=== PATIENT | female | born 1945 | race Hispanic/Latino ===

== ENCOUNTER 2017-08-06 00:19 | Emergency (ER) | payer OTHER, MEDICARE ==
[2017-08-06 01:01] LABS: APPEARANCE,URINE Clear (CLEAR); BILIRUBIN,URINE Negative (NEGATIVE); COLOR,URINE Yellow (YELLOW); GLUCOSE, URINE (UA) Negative (NEGATIVE); KETONES,URINE Negative (NEGATIVE); LEUKOCYTE ESTERASE ,URINE Moderate (NEGATIVE); NITRATE,URINE Positive (NEGATIVE); OCCULT BLOOD,URINE Negative (NEGATIVE); PH,URINE 6.5 (5.0-8.0); PROTEIN,URINE Negative (NEGATIVE)
[2017-08-06 01:21] LABS: BACTERIA,URINE Many /HPF (None Seen); RBC,URINE 0-1 /HPF (0-1)
[2017-08-06 01:30] LABS: BASOPHILS % (AUTO) 0.5 % (0.0-5.0); EOSINOPHILS % (AUTO) 2.2 % (0.0-8.0); HEMATOCRIT 37.8 % (36-48); LYMPHOCYTES % (AUTO) 26.9 % (21.0-51.0); MEAN CORPUSCULAR HEMOGLOBIN 31.7 pg (27.0-33.0); MEAN CORPUSCULAR VOLUME 90.7 fL (79-99); MONOCYTES % (AUTO) 8.2 % (3.0-13.0); NEUTROPHILS % (AUTO) 62.2 % (40.0-77.0); PLATELET COUNT (AUTO) 270 K/uL (130-400); RED BLOOD CELL COUNT(AUTO) 4.16 MIL/uL (4.00-5.50); RED CELL DISTRIBUTION WIDTH 12.6 % (11.0-15.5); WHITE BLOOD COUNT (AUTO) 9.5 K/uL (4.8-10.8)
[2017-08-06 01:36] LABS: CREATININE 0.7 mg/dL (0.5-1.5); POTASSIUM 3.4 mmol/L (3.5-5.1)
[2017-08-06] MEDS ORDERED: KETOROLAC TROMETHAMINE 30MG/ML ONE (05:49)
[2017-08-06] MEDS ORDERED: VANCOMYCIN 1GM+NS 250ML 250 ML IV ONE (07:15)
== END 2017-08-06 09:47 | disposition home or self-care (01) ==
LOC: EDH 00:19
DX: L03.116 Cellulitis of left lower limb (principal); Z98.890 Other specified postprocedural states
CPT/HCPCS: 36415; 80048; 81001; 85025; 96365; 96366; 96372; 99285; J1885; J3370

== ENCOUNTER 2018-07-22 11:26 | Emergency (ER) | payer OTHER, MEDICARE ==
[2018-07-22] MEDS ORDERED: KETOROLAC TROMETHAMINE 30MG/ML ONE (11:52)
[2018-07-22] MEDS ORDERED: LIDOCAINE 5% TOPICAL PATCH TP ONE (11:52)
== END 2018-07-22 12:42 | disposition home or self-care (01) ==
LOC: EDH 11:26
DX: G57.01 Lesion of sciatic nerve, right lower limb (principal); R03.0 Elevated blood-pressure reading, without diagnosis of hypertension; Z90.710 Acquired absence of both cervix and uterus
CPT/HCPCS: 96372; 99283; J1885

== ENCOUNTER 2020-03-01 23:35 | Emergency (ER) | payer OTHER, MEDICARE ==
[2020-03-02] MEDS ORDERED: LIDOCAINE 5% TOPICAL PATCH TP ONE (00:18)
[2020-03-02] MEDS ORDERED: KETOROLAC TROMETHAMINE 15MG/ML ONE (01:15)
[2020-03-02 01:25] LABS: APPEARANCE,URINE Cloudy (CLEAR); BILIRUBIN,URINE Negative (NEGATIVE); COLOR,URINE Yellow (YELLOW); GLUCOSE, URINE (UA) Negative (NEGATIVE); KETONES,URINE Negative (NEGATIVE); LEUKOCYTE ESTERASE ,URINE Small (NEGATIVE); NITRATE,URINE Positive (NEGATIVE); OCCULT BLOOD,URINE Negative (NEGATIVE); PROTEIN,URINE Negative (NEGATIVE)
[2020-03-02 01:31] LABS: BACTERIA,URINE Many /HPF (None Seen); RBC,URINE None Seen /HPF (0-1); SQUAMOUS EPITHELIAL CELL,UR Few /HPF (0-2)
[2020-03-02 01:36] LABS: BASOPHILS % (AUTO) 0.3 % (0.0-5.0); HEMATOCRIT 35.7 % (36-48); MEAN CORPUSCULAR HEMOGLOBIN 31.1 pg (27.0-33.0); MEAN CORPUSCULAR VOLUME 88.8 fL (79-99); MONOCYTES % (AUTO) 10.1 % (3.0-13.0); NEUTROPHILS % (AUTO) 53.3 % (40.0-77.0); PLATELET COUNT (AUTO) 257 K/uL (130-400); RED BLOOD CELL COUNT(AUTO) 4.02 MIL/uL (4.00-5.50); RED CELL DISTRIBUTION WIDTH 12.3 % (11.0-15.5); WHITE BLOOD COUNT (AUTO) 7.9 K/uL (4.8-10.8)
[2020-03-02 01:53] LABS: CREATININE 0.8 mg/dL (0.5-1.5); POTASSIUM 4.2 mmol/L (3.5-5.1)
[2020-03-02 01:55] LABS: INR 0.92 (0.85-1.15)
[2020-03-02 01:59] LABS: ALBUMIN 3.5 g/dL (3.5-5.0); BILIRUBIN,TOTAL 0.4 mg/dL (0.2-1.0); TOTAL PROTEIN, SERUM 7.6 g/dL (6.0-8.3)
== END 2020-03-02 02:19 | disposition home or self-care (01) ==
LOC: EEVIPCON 23:35 → EDH 23:35
DX: R51 Headache (principal); M62.838 Other muscle spasm; M54.6 Pain in thoracic spine; K21.9 Gastro-esophageal reflux disease without esophagitis; Z90.49 Acquired absence of other specified parts of digestive tract; Z90.710 Acquired absence of both cervix and uterus
CPT/HCPCS: 36415; 70450; 80053; 81001; 82550; 84484; 85025; 85610; 85730; 87077; 87088; 87186; 93005; 96374; 99285; J1885

== ENCOUNTER 2020-03-27 14:17 | Emergency (ER) | payer OTHER, MEDICARE | END 2020-03-27 17:03 | disposition home or self-care (01) | LOC: EDH 14:17 | DX: S80.02XA Contusion of left knee, initial encounter (principal); S00.83XA Contusion of other part of head, initial encounter; K21.9 Gastro-esophageal reflux disease without esophagitis; Z90.49 Acquired absence of other specified parts of digestive tract; Z90.710 Acquired absence of both cervix and uterus; W18.39XA Other fall on same level, initial encounter; Y93.89 Activity, other specified; Y92.89 Other specified places as the place of occurrence of the external cause; Y99.8 Other external cause status | CPT/HCPCS: 73502; 73562 ==

== ENCOUNTER 2020-04-24 22:13 | Emergency (ER) | payer OTHER, MEDICARE ==
[2020-04-24 22:47] LABS: CREATININE 0.8 mg/dL (0.5-1.5); POTASSIUM 3.4 mmol/L (3.5-5.1)
[2020-04-24 22:54] LABS: BASOPHILS % (AUTO) 0.4 % (0.0-5.0); EOSINOPHILS % (AUTO) 0.3 % (0.0-8.0); HEMATOCRIT 39.3 % (36-48); LYMPHOCYTES % (AUTO) 12.8 % (21.0-51.0); MEAN CORPUSCULAR HEMOGLOBIN 31.2 pg (27.0-33.0); MEAN CORPUSCULAR HGB CONC 35.1 g/dL (32.0-36.0); MEAN CORPUSCULAR VOLUME 88.7 fL (79-99); MONOCYTES % (AUTO) 10.5 % (3.0-13.0); NEUTROPHILS % (AUTO) 75.7 % (40.0-77.0); PLATELET COUNT (AUTO) 230 K/uL (130-400); RED BLOOD CELL COUNT(AUTO) 4.43 MIL/uL (4.00-5.50); RED CELL DISTRIBUTION WIDTH 12.1 % (11.0-15.5); WHITE BLOOD COUNT (AUTO) 7.2 K/uL (4.8-10.8)
[2020-04-24 22:55] LABS: APPEARANCE,URINE Clear (CLEAR); BILIRUBIN,URINE Negative (NEGATIVE); COLOR,URINE Yellow (YELLOW); GLUCOSE, URINE (UA) Negative (NEGATIVE); KETONES,URINE Negative (NEGATIVE); LEUKOCYTE ESTERASE ,URINE Negative (NEGATIVE); NITRATE,URINE Negative (NEGATIVE); OCCULT BLOOD,URINE Trace (NEGATIVE); PH,URINE 6.5 (5.0-8.0); PROTEIN,URINE Negative (NEGATIVE)
[2020-04-24] MEDS ORDERED: SODIUM CHLORIDE 0.9% 500ML 500 ML IV ONE (23:03)
[2020-04-24] MEDS ORDERED: ONDANSETRON HCL 4 MG/2 ML VIAL ONE (23:03)
[2020-04-24 23:04] LABS: BACTERIA,URINE Few /HPF (None Seen); MUCUS,URINE Moderate LPF (None Seen); SQUAMOUS EPITHELIAL CELL,UR Moderate /HPF (0-2)
[2020-04-24 23:10] LABS: ALBUMIN 3.6 g/dL (3.5-5.0); BILIRUBIN,DIRECT 0.2 mg/dL (0.0-0.3); BILIRUBIN,TOTAL 0.8 mg/dL (0.2-1.0); INR 1.02 (0.85-1.15); PARTIAL THROMBOPLASTIN TIME 27.2 SEC (26.3-35.5); TOTAL PROTEIN, SERUM 7.9 g/dL (6.0-8.3)
== END 2020-04-25 01:37 | disposition home or self-care (01) ==
LOC: EDH 22:13
DX: R10.30 Lower abdominal pain, unspecified (principal); R50.9 Fever, unspecified; R51.9 Headache, unspecified; R35.0 Frequency of micturition; K21.9 Gastro-esophageal reflux disease without esophagitis; Z87.891 Personal history of nicotine dependence
CPT/HCPCS: 36415; 70450; 71045; 74176; 80048; 80076; 81001; 82150; 82550; 83690; 84484; 85025; 85610; 85730; 93005; 96374; 99285; J2405; J7040

== ENCOUNTER 2020-06-02 09:00 | Inpatient (IN) | payer OTHER, MEDICARE ==
[~2020-06-02] VITALS: Ht 152.4 cm; Wt 80.0 kg
[2020-06-02 10:19] LABS: APPEARANCE,URINE Clear (CLEAR); BILIRUBIN,URINE Negative (NEGATIVE); COLOR,URINE Yellow (YELLOW); GLUCOSE, URINE (UA) Negative (NEGATIVE); KETONES,URINE Negative (NEGATIVE); LEUKOCYTE ESTERASE ,URINE Negative (NEGATIVE); NITRATE,URINE Negative (NEGATIVE); OCCULT BLOOD,URINE Negative (NEGATIVE); PROTEIN,URINE Negative (NEGATIVE)
[2020-06-08 15:53] VITALS: BP 173/89
[2020-06-08] MEDS ORDERED: CHOL500051 PO (16:17)
[2020-06-08] MEDS ORDERED: ROSU5TAB12 PO (16:17)
[2020-06-08] MEDS ORDERED: FOLI-114 PO (16:17)
--- NOTE | 2020-06-08 16:42 | NUR ---
MD cade Informed Dr. Choi that covid test was pending. Stated may have rapid test in AM if no results are available by the morning.
[2020-06-09] VITALS (24 sets, daily range): BP systolic 130–159; BP diastolic 58–79
[2020-06-09] MEDS ORDERED: LACTATED RINGERS 1000ML 1,000 ML IV ONE (07:52)
[2020-06-09] MEDS: CEFAZOLIN SODIUM 1 GM VIAL IVP SCH ×3 (08:00→17:17)
[2020-06-09] MEDS ORDERED: KETOROLAC TROMETHAMINE 30MG/ML ONE (08:31)
[2020-06-09] MEDS ORDERED: ACETAMINOPHEN EXTRA STRENGTH 500 MG TABLET ONE (08:31)
[2020-06-09] MEDS ORDERED: CELECOXIB 200 MG CAP ONE (08:32)
[2020-06-09] MEDS ORDERED: CEFAZOLIN SODIUM 1 GM VIAL ONE (08:37)
[2020-06-09] MEDS ORDERED: TRANEXAMIC ACID 1000MG/10ML ONE ×2 (08:37→13:49)
[2020-06-09] MEDS ORDERED: MIDAZOLAM HCL 1 MG/ML 2ML VIAL ONE (10:20)
[2020-06-09] MEDS ORDERED: PROPOFOL 10 MG/ML 20ML VIAL IV ONE ×2 (10:23→13:30)
[2020-06-09] MEDS ORDERED: ROCURONIUM 10MG/1ML SYR 10 MG/ML ML ONE ×2 (10:23→11:19)
[2020-06-09] MEDS ORDERED: LIDOCAINE PF 2% 5ML ABBOJECT ONE (10:23)
[2020-06-09] MEDS ORDERED: DEXAMETHASONE SOD PHOSPHATE 10MG/ML 1ML VIAL ONE (10:26)
[2020-06-09] MEDS ORDERED: MEPERIDINE-PF 25 MG/ML SYG ONE (11:37)
[2020-06-09] MEDS ORDERED: GLYCOPYRROLATE 1 MG/5 ML SYRINGE ONE ×2 (11:54→13:08)
[2020-06-09] MEDS ORDERED: OXYCODONE HCL 5 MG TAB PO PRN ×2 (13:00)
[2020-06-09] MEDS ORDERED: POTASSIUM CHLORIDE 20MEQ/100ML 100 ML IV PRN (13:00)
[2020-06-09] MEDS ORDERED: POTASSIUM CHLORIDE 10% ELIXIR 20 MEQ/15 ML UDCUP PO PRN (13:00)
[2020-06-09] MEDS ORDERED: DiphenhydrAMINE HCL 50 MG/ML VIAL IVP PRN (13:00)
[2020-06-09] MEDS ORDERED: POTASSIUM CHLORIDE 20 MEQ ERTAB PO PRN (13:00)
[2020-06-09] MEDS ORDERED: KETOROLAC TROMETHAMINE 15MG/ML IV PRN (13:00)
[2020-06-09] MEDS ORDERED: TRAMADOL HCL 50 MG TABLET PO PRN (13:00)
[2020-06-09] MEDS ORDERED: ONDANSETRON HCL 4 MG/2 ML VIAL IVP PRN (13:00)
[2020-06-09] MEDS: ACETAMINOPHEN EXTRA STRENGTH 500 MG TABLET PO SCH ×2 (13:00→20:15)
[2020-06-09] MEDS ORDERED: FERROUS FUMARATE 324 MG TABLET PO PRN (13:00)
[2020-06-09] MEDS ORDERED: LIDOCAINE HCL-MPF 1% 2ML VIAL IV PRN (13:00)
[2020-06-09] MEDS ORDERED: CALCIUM CARBONATE 500 MG TABLET PO PRN (13:00)
[2020-06-09] MEDS ORDERED: NEOSTIGMINE 5MG/5ML SYR IV ONE (13:08)
[2020-06-09] MEDS: SODIUM CHLORIDE 0.9% 1000ML 1,000 ML IV SCH ×2 (15:06→22:52)
[2020-06-09] MEDS ORDERED: NON-FORMULARY MEDICATION 1 EACH (Rosuvastatin Calcium 5 MG) PO SCH (15:15)
--- NOTE | 2020-06-09 20:00 | NUR ---
ASSESSMENT NOTE PATIENT AWAKE, ALERT, OX3, NO SOB, NO C.O PAIN AT THIS TIME, CONTINUE WITH NUMBNESS TO LLE, NICOLASA DRESSING LEFT HIP INTACT WITH NEGATIVE PRESSURE , REINFORCE IS PREVIOUSLY DONE WITH MAXIMUM VOLUME INSPIRATION OF 1500, TEACH PATIENT PLAN OF CARE AND EXPECTED OUTCOME, PATIENT VERBALIZES UNDERSTANDING VIA TEACH BACK
[2020-06-09] MEDS: ATORVASTATIN CALCIUM 10 MG TABLET PO SCH (20:14)
[2020-06-09] MEDS: CELECOXIB 200 MG CAP PO SCH (20:14)
[2020-06-09] MEDS: PREGABALIN 25 MG CAP PO SCH (20:14)
--- NOTE | 2020-06-09 23:00 | NUR ---
ACTIVITY SIT UP AT BEDSIDE WITH FEET ON FLOOR, TOLERATED WELL, PATIENT STATES "MY LEG IS WAKING UP", BACK TO BED, LEFT HIP NICOLASA INTACT WITH NEGATIVE PRESSURE , ENCOURAGE BLE DORSIFLEXION AND REINFORCE IS, CALL ANDRADE AT REACH
[2020-06-10] VITALS (7 sets, daily range): BP systolic 105–145; BP diastolic 50–80
[2020-06-10] MEDS: CEFAZOLIN SODIUM 1 GM VIAL IVP SCH (01:57)
[2020-06-10] MEDS: ACETAMINOPHEN EXTRA STRENGTH 500 MG TABLET PO SCH ×3 (04:33→19:42)
[2020-06-10 05:28] LABS: HEMATOCRIT 30.9 % (36-48); MEAN CORPUSCULAR HEMOGLOBIN 30.8 pg (27.0-33.0); RED BLOOD CELL COUNT(AUTO) 3.51 MIL/uL (4.00-5.50); RED CELL DISTRIBUTION WIDTH 11.9 % (11.0-15.5); WHITE BLOOD COUNT (AUTO) 11.6 K/uL (4.8-10.8)
[2020-06-10 05:37] LABS: CREATININE 0.7 mg/dL (0.5-1.5); POTASSIUM 3.8 mmol/L (3.5-5.1)
[2020-06-10] MEDS: POLYETHYLENE GLYCOL 3350 17 GM POWD.PACK PO SCH (08:34)
[2020-06-10] MEDS: PREGABALIN 25 MG CAP PO SCH ×2 (08:34→19:43)
[2020-06-10] MEDS: FAMOTIDINE 20MG TAB 20 MG TAB PO SCH (08:35)
[2020-06-10] MEDS: CELECOXIB 200 MG CAP PO SCH ×2 (08:35→19:43)
[2020-06-10] MEDS: SODIUM CHLORIDE 0.9% 1000ML 1,000 ML IV SCH (08:35)
[2020-06-10] MEDS: APIXABAN 2.5 MG TABLET PO SCH ×2 (08:35→19:42)
[2020-06-10] MEDS ORDERED: NON-FORMULARY MEDICATION 1 EACH (Cholecalciferol (Vitamin D3) (Vitamin D3) 125 MCG) PO SCH (09:00)
--- NOTE | 2020-06-10 12:18 | NUR ---
CM NOTE/[facility]/RENAISSANCE MET WITH PATIENT IN ROOM. PER PATIENT, OK WITH [facility]. CRICKET COMPLETED. CLINICAL PACKET, INCLUDING PASRR FAXED TO ALYSA AT [phone]. PENDING PT NOTES TO BE FAXED. PER PATIENT, DECLINED NEED OR USE OF [id number], ONLY WANTS STANDARD WALKER. CRICKET COMPLETED FOR RENAISSANCE, PENDING DR. ALEXANDER TO SIGN FORMS, FLAGGED IN CHART FOR MD. PRIMARY NURSE, LAUREN IBARRA, AWARE OF DC PLAN.
--- NOTE | 2020-06-10 12:23 | NUR ---
CM NOTE/IA MET WITH PATIENT IN ROOM. PER PATIENT, LIVES ALONE, INDEPENDENT BUT REQUIRES TIME D/T SLOW PACE, HAS USE OF CANE AND SHOWER CHAIR, NO DIALYSIS, AND FEELS SAFE TO RETURN HOME BUT OPEN TO SNF S/P HIP SURGERY. CM TO FOLLOW UP. Addendum: 06/10/20 at 1226 by AKIKO LOCO RN CM Amended: Links added.
--- NOTE | 2020-06-10 15:55 | NUR ---
1313 patient signed HAIDER Letter, I faxed HAIDER Letter to [phone] and placed in chart under consent tab.
[2020-06-10] MEDS: ATORVASTATIN CALCIUM 10 MG TABLET PO SCH (19:43)
[2020-06-11 03:55] VITALS: BP 92/53
[2020-06-11 05:44] LABS: HEMATOCRIT 29.9 % (36-48); MEAN CORPUSCULAR HEMOGLOBIN 30.4 pg (27.0-33.0); MEAN CORPUSCULAR HGB CONC 33.4 g/dL (32.0-36.0); MEAN CORPUSCULAR VOLUME 90.9 fL (79-99); RED BLOOD CELL COUNT(AUTO) 3.29 MIL/uL (4.00-5.50); RED CELL DISTRIBUTION WIDTH 12.5 % (11.0-15.5); WHITE BLOOD COUNT (AUTO) 9.6 K/uL (4.8-10.8)
[2020-06-11 05:59] LABS: CREATININE 0.9 mg/dL (0.5-1.5); POTASSIUM 3.8 mmol/L (3.5-5.1)
[2020-06-11] MEDS: ACETAMINOPHEN EXTRA STRENGTH 500 MG TABLET PO SCH ×3 (06:17→21:27)
[2020-06-11 08:00] VITALS: BP 125/56
[2020-06-11] MEDS: POLYETHYLENE GLYCOL 3350 17 GM POWD.PACK PO SCH (09:00)
[2020-06-11] MEDS: CELECOXIB 200 MG CAP PO SCH ×2 (09:14→21:25)
[2020-06-11] MEDS: APIXABAN 2.5 MG TABLET PO SCH ×2 (09:14→21:25)
[2020-06-11] MEDS: PREGABALIN 25 MG CAP PO SCH ×2 (09:15→21:25)
[2020-06-11] MEDS: FAMOTIDINE 20MG TAB 20 MG TAB PO SCH (09:15)
[2020-06-11] MEDS ORDERED: APIX2.5T PO (11:46)
[2020-06-11] MEDS ORDERED: HYDR-4060 PO (11:46)
[2020-06-11 12:00] VITALS: BP 108/51
--- NOTE | 2020-06-11 15:09 | NUR ---
CM NOTE/COVID FAXED COVID RESULT AND COVID FORM FAXED TO ALYSA FROM [facility]. PER ALYSA, PENDING AUTHORIZATION FOR [facility].
--- NOTE | 2020-06-11 15:39 | NUR ---
CM NOTE/RENAISSANCE NEW ORDER FOR STANDARD WALKER AND BSC. PER PATIENT, ONLY WANTS STANDARD WALKER. CLINICAL PACKET FAXED TO DME AND ALYSA FROM [facility] TO FOLLOW UP FOR DME.
[2020-06-11 16:00] VITALS: BP 105/52
[2020-06-11 19:36] VITALS: BP 130/55
[2020-06-11] MEDS: ATORVASTATIN CALCIUM 10 MG TABLET PO SCH (21:25)
[2020-06-11 23:35] VITALS: BP 132/58
[2020-06-12 04:00] VITALS: BP 133/61
[2020-06-12 05:55] LABS: HEMATOCRIT 30.8 % (36-48); MEAN CORPUSCULAR HEMOGLOBIN 30.2 pg (27.0-33.0); MEAN CORPUSCULAR HGB CONC 33.4 g/dL (32.0-36.0); MEAN CORPUSCULAR VOLUME 90.3 fL (79-99); RED BLOOD CELL COUNT(AUTO) 3.41 MIL/uL (4.00-5.50); RED CELL DISTRIBUTION WIDTH 12.4 % (11.0-15.5); WHITE BLOOD COUNT (AUTO) 9.3 K/uL (4.8-10.8)
[2020-06-12] MEDS: ACETAMINOPHEN EXTRA STRENGTH 500 MG TABLET PO SCH ×3 (05:59→21:17)
[2020-06-12 06:00] LABS: CREATININE 0.8 mg/dL (0.5-1.5); POTASSIUM 4.1 mmol/L (3.5-5.1)
[2020-06-12 08:36] VITALS: BP 128/57
[2020-06-12] MEDS: FAMOTIDINE 20MG TAB 20 MG TAB PO SCH (08:37)
[2020-06-12] MEDS: APIXABAN 2.5 MG TABLET PO SCH ×2 (08:37→21:15)
[2020-06-12] MEDS: POLYETHYLENE GLYCOL 3350 17 GM POWD.PACK PO SCH (08:37)
[2020-06-12] MEDS: PREGABALIN 25 MG CAP PO SCH ×2 (08:38→21:16)
[2020-06-12] MEDS: CELECOXIB 200 MG CAP PO SCH ×2 (08:38→21:15)
--- NOTE | 2020-06-12 09:22 | NUR ---
Atif Gomez Spoke blair Thompson this morning, she mentions that ins auth is still pending at this time. Per Donna she will continue to check on status and advise this CM once she receives an update.
[2020-06-12 12:03] VITALS: BP 112/57
[2020-06-12] MEDS ORDERED: BISACODYL 10 MG SUPP.RECT RC PRN (13:00)
[2020-06-12] MEDS ORDERED: MAGNESIUM CITRATE 296 ML SOLUTION PO ONE (14:15)
--- NOTE | 2020-06-12 16:27 | NUR ---
Rec'd notice from [facility] Case [facility] that pt still does not have insurance authorization for [facility]. Notified Dr. Choi via telephone, rec'd orders to change to in pt. Orders entered.
[2020-06-12 16:50] VITALS: BP 156/69
[2020-06-12 19:10] VITALS: BP 135/73
[2020-06-12] MEDS: ATORVASTATIN CALCIUM 10 MG TABLET PO SCH (21:15)
[2020-06-12 23:42] VITALS: BP 145/55
[2020-06-13 03:40] VITALS: BP 143/62
[2020-06-13] MEDS: ACETAMINOPHEN EXTRA STRENGTH 500 MG TABLET PO SCH ×3 (05:44→21:00)
[2020-06-13 08:00] VITALS: BP 136/62
[2020-06-13] MEDS: APIXABAN 2.5 MG TABLET PO SCH ×2 (10:05→20:57)
[2020-06-13] MEDS: FAMOTIDINE 20MG TAB 20 MG TAB PO SCH (10:05)
[2020-06-13] MEDS: CELECOXIB 200 MG CAP PO SCH ×2 (10:05→20:57)
[2020-06-13] MEDS: PREGABALIN 25 MG CAP PO SCH ×2 (10:05→20:57)
[2020-06-13] MEDS: POLYETHYLENE GLYCOL 3350 17 GM POWD.PACK PO SCH (10:10)
[2020-06-13 11:55] VITALS: BP 141/64
[2020-06-13 16:00] VITALS: BP 130/53
[2020-06-13 20:00] VITALS: BP 141/60
[2020-06-13] MEDS: ATORVASTATIN CALCIUM 10 MG TABLET PO SCH (20:57)
[2020-06-14] VITALS (7 sets, daily range): BP systolic 121–147; BP diastolic 54–78
[2020-06-14] MEDS: ACETAMINOPHEN EXTRA STRENGTH 500 MG TABLET PO SCH ×3 (06:00→20:33)
[2020-06-14] MEDS: POLYETHYLENE GLYCOL 3350 17 GM POWD.PACK PO SCH (10:49)
[2020-06-14] MEDS: PREGABALIN 25 MG CAP PO SCH ×2 (10:49→20:33)
[2020-06-14] MEDS: FAMOTIDINE 20MG TAB 20 MG TAB PO SCH (10:49)
[2020-06-14] MEDS: CELECOXIB 200 MG CAP PO SCH ×2 (10:49→20:32)
[2020-06-14] MEDS: APIXABAN 2.5 MG TABLET PO SCH ×2 (10:49→20:32)
[2020-06-14] MEDS: ATORVASTATIN CALCIUM 10 MG TABLET PO SCH (20:32)
[2020-06-15 03:57] VITALS: BP 137/82
[2020-06-15] MEDS: ACETAMINOPHEN EXTRA STRENGTH 500 MG TABLET PO SCH ×2 (05:21→13:25)
[2020-06-15 08:13] VITALS: BP 122/57
[2020-06-15] MEDS: PREGABALIN 25 MG CAP PO SCH (09:33)
[2020-06-15] MEDS: POLYETHYLENE GLYCOL 3350 17 GM POWD.PACK PO SCH (09:34)
[2020-06-15] MEDS: APIXABAN 2.5 MG TABLET PO SCH (09:34)
[2020-06-15] MEDS: CELECOXIB 200 MG CAP PO SCH (09:34)
[2020-06-15] MEDS: FAMOTIDINE 20MG TAB 20 MG TAB PO SCH (09:34)
[2020-06-15 11:34] VITALS: BP 110/66
--- NOTE | 2020-06-15 15:33 | NUR ---
CM NOTE/CLAUDIA LABOY PER ALYSA AT [facility], AUTHORIZATION RECEIVED FOR SNF. DR. ALEXANDER AND PRIMARY NURSE, ELÍAS IBARRA, MADE AWARE.
[2020-06-15 16:33] VITALS: BP 131/62
--- NOTE | 2020-06-15 17:00 | NUR ---
REPORT GIVEN TO JUAN REED LVN, CLAUDIA LABOY VERBALIZED UNDERSTANDING.
--- NOTE | 2020-06-15 18:45 | NUR ---
SPOKE WITH SEB FROM [facility] AND INFORMED HER OK TO HOTEL CONCIERGE PATIENT PER DR. ALEXANDER. SEB SAID THE MEDICAL OFFICE REP WAS COMING BACK FROM [place] AND WHEN HE ARRIVED TO [facility], WOULD SEND MEDICAL OFFICE REP HERE TO HOTEL CONCIERGE PATIENT.
--- NOTE | 2020-06-15 19:26 | NUR ---
DISCHARGE INSTRUCTIONS GIVEN AND EXPLAINED UTILIZING TEACH BACK METHOD, PT VERBALIZED UNDERSTANDING. DISCHARGE TO [facility]. FOLLOW UP WITH DR. ALEXANDER ON AT 9:15 A.M. CALL 29/01 FOR ANY CONCERNS. RESUME YOUR PREVIOUS HOME DIET. RESUME YOUR PREVIOUS HOME MEDICATIONS IF ANY INSTRUCTED BY STAFF. PLEASE TAKE PRESCRIPTION MEDICATIONS INSTRUCTED. NURSE TO REMOVE DRESSING ON 06/16/20. CONTINUE DAILY DRESSING CHANGES IF NEEDED AFTER 1ST REMOVAL. MAY SHOWER AND GET DRESSING WET. FOLLOW NURSE INSTRUCTIONS TO PROTECT DRESSING'S BATTERY. AMBULATE TOLERATED WITH THE USE OF CRUTCHES OR WALKER UNTIL YOUR ABLE TO WALK INDEPENDENTLY. CALL OFFICE FOR ANY CONCERNS 29/01 AT [phone] IF YOU NEED A PRESCRIPTION REFILL ON YOUR PAIN MEDICATIONS, PLEASE CALL OFFICE A FEW DAYS BEFORE YOU TAKE YOUR LAST PAIN PILL. FOLLOW PHYSICAL THERAPIST RECOMMENDATIONS/INSTRUCTIONS. GAIT TRAINING WITH WALKER AND WEIGHT BEARING TOLERATED, ADVANCE TO CANE PER NURSE/THERAPIST DISCRETION. DO QUADRICEPS/ABDUCTOR STRENGTHENING EXERCISES TO OPERATIVE LEG. MODALITIES PER PHYSICAL THERAPIST DISCRETION. POSTERIOR HIP PRECAUTIONS. ACTIVE AND ACTIVE ASSISTED ROM EXERCISES OF OPERATED LEG. CALL [phone] OR GO TO EMERGENCY ROOM IF YOU HAVE ANY CHEST PAIN/DISCOMFORT, SHORTNESS OF BREATH/DIFFICULTY BREATHING OR NEEDED.
== END 2020-06-15 19:57 | DRG 470 ==
LOC: OBSVTOIN 06-09 06:10 → INTOOBSV 06-09 06:10 → DAHIP 06-09 06:10 → EDSTATUS 06-09 09:00 → 3BH 06-09 14:28
PROVIDERS: ADMIT Orthopaedic Surgery; ATTEND Orthopaedic Surgery
PROC: 0SRB0JZ Replacement of Left Hip Joint with Synthetic Substitute, Open Approach (ICD-10-PCS; principal; 2020-06-09 10:25)
PROC: 3E0T3BZ Introduction of Anesthetic Agent into Peripheral Nerves and Plexi, Percutaneous Approach (ICD-10-PCS; 2020-06-09 10:25)
DX: M16.12 Unilateral primary osteoarthritis, left hip (principal); Z20.828 Contact with and (suspected) exposure to other viral communicable diseases; E78.5 Hyperlipidemia, unspecified; M21.752 Unequal limb length (acquired), left femur; M06.9 Rheumatoid arthritis, unspecified; Z90.710 Acquired absence of both cervix and uterus
CPT/HCPCS: 36415; 73503; 80048; 81003; 85027; 87426; 87641; 97039; C1776; G0378; J0690; J1100; J1885; J2001; J2175; J2250; J2405; J2704; J2710; J3490; J7030; J7120; U0003